=== PATIENT | female | born 1990 | race Caucasian/White ===

== ENCOUNTER 2017-09-30 11:04 | Emergency (ER) | payer MEDICAID ==
[2017-09-30 11:08] VITALS: BP 107/62
[2017-09-30 11:30] LABS: BILIRUBIN,URINE NEGATIVE (NEGATIVE); GLUCOSE, URINE (UA) NEGATIVE (NEGATIVE); KETONES,URINE (UA) 15 mg/dL (NEGATIVE); LEUKOCYTE ESTERASE, URINE MODERATE (NEGATIVE); NITRITE,URINE NEGATIVE (NEGATIVE); OCCULT BLOOD,URINE MODERATE (NEGATIVE); PROTEIN,URINE TRACE mg/dL (NEGATIVE); UROBILINOGEN,URINE 0.2 (NORMAL) E.U./dL (NORMAL)
[2017-09-30 11:32] LABS: CLARITY,URINE CLOUDY (CLEAR); HCG UR QUAL NEGATIVE
[2017-09-30 11:46] LABS: SQUAMOUS EPITHELIAL CELL,UR FEW Squamous (<= Few); WBC CLUMPS,URINE PRESENT
[2017-09-30 11:47] LABS: BACTERIA,URINE Moderate /HPF (None Seen)
--- NOTE | 2017-09-30 13:03 | ED Physician Documentation ---
History of Present Illness - Stated complaint Stated Complaint: FEM - Chief complaint Chief Complaint: Heent - Additonal information Additional information: hx from pt 27 female dysuria no fever chill no NV no flank pain denies preg no vag dc small blood with wiping Review of Systems Constitutional: denies: Fever, Chills GI: denies: Abdominal Pain, Nausea, Vomiting : reports: Dysuria. 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: section - Present Medications Home Medications: Ambulatory Orders Medication Instructions Recorded Confirmed Phenazopyridine [Pyridium] 100 mg PO TID PRN #9 tablet 09/30/17 Sulfamethox/Trimeth 800/160 1 each PO BID #6 tablet 09/30/17 [Bactrim Ds 800/160] - Allergies Allergies/Adverse Reactions: Allergies Allergy/AdvReac Type Severity Reaction Status Date / Time cephalexin monohydrate * Allergy Hives Verified 09/30/17 11:08 [From [employer]] - Social History Does the pt smoke?: Yes Smoking Status: Current every day smoker Does the pt drink ETOH?: Yes Does the pt have substance abuse?: Yes - Immunizations Immunizations are current?: Yes - POLST Patient has POLST: No PD ED PE NORMAL - Vitals Vital signs reviewed: Yes - Cardiac Cardiac: RRR - Respiratory Respiratory: No respiratory distress, Clear bilaterally - Abdomen Abdomen: Soft, Non tender - Back Back: No CVA TTP - Neuro Neuro: Alert and oriented X 3 Results - Vitals Vitals: Vital Signs - 24 hr 09/30/17 11:06 Temperature 36.7 C Heart Rate 79 Respiratory 14 Rate Blood Pressure 107/62 O2 Saturation 100 Oxygen O2 Source Room air - Labs Labs: Laboratory Tests 09/30/17 11:21 Urine Color YELLOW Urine Clarity CLOUDY Urine pH 6.0 Ur Specific [place] 1.025 Urine Protein TRACE Urine Glucose (UA) NEGATIVE Urine Ketones 15 H Urine Occult Blood MODERATE H Urine Nitrite NEGATIVE Urine Bilirubin NEGATIVE Urine Urobilinogen 0.2 (NORMAL) Ur Leukocyte Esterase MODERATE H Urine RBC 6-10 H Urine WBC >25 H Urine WBC Clumps PRESENT Ur Squamous Epith Cells FEW Squamous Urine Bacteria Moderate H Ur Microscopic Review INDICATED Urine Culture Comments INDICATED Urine HCG, Qual NEGATIVE PD MEDICAL DECISION MAKING - ED course ED course: no fever chills, no flank pain, small hematuria without flank pain doubt renal colic will tx as cystitis - Sepsis Event Vital Signs: Vital Signs - 24 hr 09/30/17 11:06 Temperature 36.7 C Heart Rate 79 Respiratory 14 Rate Blood Pressure 107/62 O2 Saturation 100 Oxygen O2 Source Room air Departure - Departure Disposition: Home, Self Care Clinical Impression: UTI (urinary tract infection) Qualifiers: Urinary tract infection type: acute cystitis Hematuria presence: with hematuria Qualified Code(s): N30.01 - Acute cystitis with hematuria Condition: Good Instructions: ED UTI Cystitis Female Follow-Up: Li Murillo ARNP [Primary Care Provider] - (for a repeat urine to confirm the infection and blood have cleared ) Prescriptions: Phenazopyridine [Pyridium] 100 mg PO TID PRN #9 tablet PRN Reason: dysuria Sulfamethox/Trimeth 800/160 [Bactrim Ds 800/160] 1 each PO BID #6 tablet Comments: A urine culture will be run and if your antibiotic needs to be changed, the ER staff will call you. Please follow up with your PMD next week for a repeat urine test to be sure the infection and blood have cleared Return if worse Forms: Activity restrictions
== END 2017-09-30 13:09 | disposition home or self-care (01) ==
LOC: ED 11:04
DX: N30.01 Acute cystitis with hematuria (principal); F17.200 Nicotine dependence, unspecified, uncomplicated
CPT/HCPCS: 81001; 81003; 81025; 87086; 87181; 99283

== ENCOUNTER 2018-05-26 23:54 | Outpatient (CLI) | payer OTHER, MEDICAID | END 2018-05-26 23:55 | disposition EMS.NT | LOC: EMS 23:54 | PROVIDERS: ATTEND Surgery | DX: Z04.1 Encounter for examination and observation following transport accident (principal) ==

== ENCOUNTER 2018-07-19 10:22 | Outpatient (CLI) | payer MEDICAID ==
[2018-07-20 12:57] LABS: HEPATITIS B SURFACE ANTIGEN NON-REACTIVE (NON-REACTIVE)
[2018-07-20 13:07] LABS: HEPATITIS C ANTIBODY NON-REACTIVE (NON-REACTIVE)
[2018-07-20 14:15] LABS: HIV AG/AB 4TH GEN NON-REACTIVE (NON-REACTIVE)
== END 2018-07-19 10:23 | disposition home or self-care (01) ==
LOC: LAB.F 10:22
PROVIDERS: ATTEND Internal Medicine
DX: Z20.2 Contact with and (suspected) exposure to infections with a predominantly sexual mode of transmission (principal)
CPT/HCPCS: 36415; 81599; 86592; 86803; 87340; 87389; 87491; 87591

== ENCOUNTER 2020-01-24 14:26 | Emergency (ER) | payer MEDICAID ==
[2020-01-24 14:58] LABS: BILIRUBIN,URINE NEGATIVE (NEGATIVE); GLUCOSE, URINE (UA) NEGATIVE (NEGATIVE); KETONES,URINE (UA) NEGATIVE (NEGATIVE); LEUKOCYTE ESTERASE, URINE NEGATIVE (NEGATIVE); NITRITE,URINE NEGATIVE (NEGATIVE); OCCULT BLOOD,URINE NEGATIVE (NEGATIVE); PROTEIN,URINE NEGATIVE (NEGATIVE); UROBILINOGEN,URINE 0.2 (NORMAL) E.U./dL (NORMAL)
[2020-01-24 14:59] LABS: CLARITY,URINE CLEAR (CLEAR)
[2020-01-24 15:00] LABS: HCG UR QUAL NEGATIVE
[2020-01-24 15:07] LABS: BASOPHILS % (AUTO) 0.3 %; EOSINOPHILS # (AUTO) 0.1 10^3/uL (0.0-0.7); EOSINOPHILS % (AUTO) 1.7 %; HGB - HEMOGLOBIN 13.3 g/dL (12.0-16.0); LYMPHOCYTES # (AUTO) 1.2 10^3/uL (1.5-3.5); LYMPHOCYTES % (AUTO) 19.2 %; MEAN CORPUSCULAR HEMOGLOBIN 31.3 pg (27.0-31.0); MEAN CORPUSCULAR HGB CONC 33.4 g/dL (32.0-36.0); MEAN CORPUSCULAR VOLUME 93.6 fL (81.0-99.0); MEAN PLATELET VOLUME 9.3 fL (7.9-10.8); MONOCYTES # (AUTO) 0.4 10^3/uL (0.0-1.0); MONOCYTES % (AUTO) 6.6 %; NEUTROPHILS # (AUTO) 4.7 10^3/uL (1.5-6.6); PLT - PLATELET COUNT 226 10^3/uL (130-450); RED BLOOD COUNT 4.25 10^6/uL (4.20-5.40); RED CELL DISTRIBUTION WIDTH 11.9 % (12.0-15.0); WHITE BLOOD COUNT 6.5 x10^3/uL (4.8-10.8)
[2020-01-24] MEDS ORDERED: KETOROLAC 30 MG/ML VIAL IVP STA (15:15)
[2020-01-24] MEDS ORDERED: SODIUM CHLORIDE 0.9% 1,000 ML IV STA ×2 (15:15)
[2020-01-24 15:16] LABS: ALBUMIN 4.5 g/dL (3.2-5.5); ALBUMIN/GLOBULIN RATIO 1.6 (1.0-2.2); BILIRUBIN,TOTAL 0.5 mg/dL (0.2-1.0); CREATININE 0.5 mg/dL (0.4-1.0); TOTAL PROTEIN 7.3 g/dL (6.7-8.2)
--- NOTE | 2020-01-24 15:26 | ED Physician Documentation ---
History of Present Illness - Stated complaint Stated Complaint: CONSTIPATION,CONGESTION,NUMB HANDS - Chief complaint Chief Complaint: General - History obtained from History obtained from: Patient - History of Present Illness Timing: How many days ago (4) Pain level max: 6 Pain level now: 5 - Additonal information Additional information: 30-year-old female presents the emergency department with abdominal pain. This been ongoing for the past several days. She states that she had some relief after a bowel movement. She feels like she is constipated. She also complains of tingling in the bilateral hands, this occurs intermittently. Not currently feeling that. She also complains of a bump near the right third digit, MCP joint. Nothing makes it better or worse as well. Denies any vomiting. No fevers. No diarrhea or constipation. 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 : None HEENT: None Psych: Depression Musculoskeletal: None Derm: None - Past Surgical History Past 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 - Present Medications Home Medications: Ambulatory Orders Medication Instructions Recorded Confirmed Ibuprofen [Motrin] 800 mg PO Q8H PRN #30 tablet 01/24/20 Ondansetron Odt [Zofran] 4 mg TL Q6H PRN #10 tablet 01/24/20 polyethylene glycoL 3350 [Miralax] 17 gm PO DAILY PRN #1 bottle 01/24/20 - Allergies Allergies/Adverse Reactions: Allergies Allergy/AdvReac Type Severity Reaction Status Date / Time cephalexin monohydrate * Allergy Hives Verified 01/24/20 14:43 [From [employer]] - Social History Does the pt smoke?: Yes Smoking Status: Current every day smoker Does the pt drink ETOH?: Yes Does the pt have substance abuse?: Yes - Immunizations Immunizations are current?: Yes - POLST Patient has POLST: No PD ED PE NORMAL - Vitals Vital signs reviewed: Yes - General General: Alert and oriented X 3, No acute distress, Well developed/nourished - HEENT HEENT: Moist mucous membranes - Neck Neck: Supple, no meningeal sign - Cardiac Cardiac: RRR, Strong equal pulses - Respiratory Respiratory: No respiratory distress, Clear bilaterally - Abdomen Abdomen: Soft, Non distended, Other (mild TTP LLQ) - Rectal Rectal: Pt declined - Back Back: No CVA TTP, No spinal TTP - Derm Derm: Warm and dry - Extremities Extremities: No edema - Neuro Neuro: Alert and oriented X 3 - Psych Psych: Normal mood, Normal affect Results - Vitals Vitals: Vital Signs - 24 hr 01/24/20 01/24/20 01/24/20 14:38 16:43 18:00 Temperature 36.7 C Heart Rate 90 72 68 Respiratory 16 18 20 Rate Blood Pressure 112/69 110/69 115/75 O2 Saturation 100 100 100 Oxygen O2 Source Room air - Labs Labs: Laboratory Tests 01/24/20 01/24/20 01/24/20 14:47 14:57 14:57 WBC 6.5 RBC 4.25 Hgb 13.3 Hct 39.8 MCV 93.6 MCH 31.3 H MCHC 33.4 RDW 11.9 L Plt Count 226 MPV 9.3 Neut # (Auto) 4.7 Lymph # (Auto) 1.2 L [place] # (Auto) 0.4 Eos # (Auto) 0.1 Baso # (Auto) 0.0 Absolute Nucleated RBC 0.00 Nucleated RBC % 0.0 Sodium 136 Potassium 3.5 Chloride 102 Carbon Dioxide 24 Anion Gap 10.0 BUN 19 Creatinine 0.5 Estimated GFR (MDRD) 145 Glucose 85 Calcium 9.0 Phosphorus Magnesium Total Bilirubin 0.5 AST 14 ALT 12 Alkaline Phosphatase 51 Total Protein 7.3 Albumin 4.5 Globulin 2.8 Albumin/Globulin Ratio 1.6 Lipase 20 L Urine Color YELLOW Urine Clarity CLEAR Urine pH 6.0 Ur Specific [place] 1.025 Urine Protein NEGATIVE Urine Glucose (UA) NEGATIVE Urine Ketones NEGATIVE Urine Occult Blood NEGATIVE Urine Nitrite NEGATIVE Urine Bilirubin NEGATIVE Urine Urobilinogen 0.2 (NORMAL) Ur Leukocyte Esterase NEGATIVE Ur Microscopic Review NOT INDICATED Urine Culture Comments NOT INDICATED Urine HCG, Qual NEGATIVE 01/24/20 14:57 WBC RBC Hgb Hct MCV MCH MCHC RDW Plt Count MPV Neut # (Auto) Lymph # (Auto) [place] # (Auto) Eos # (Auto) Baso # (Auto) Absolute Nucleated RBC Nucleated RBC % Sodium Potassium Chloride Carbon Dioxide Anion Gap BUN Creatinine Estimated GFR (MDRD) Glucose Calcium Phosphorus 3.1 Magnesium 2.2 Total Bilirubin AST ALT Alkaline Phosphatase Total Protein Albumin Globulin Albumin/Globulin Ratio Lipase Urine Color Urine Clarity Urine pH Ur Specific [place] Urine Protein Urine Glucose (UA) Urine Ketones Urine Occult Blood Urine Nitrite Urine Bilirubin Urine Urobilinogen Ur Leukocyte Esterase Ur Microscopic Review Urine Culture Comments Urine HCG, Qual - Rads (name of study) CT abdomen pelvis Radiology: Prelim report reviewed, EMP read contemporaneously, See rad report pelvic US Radiology: Prelim report reviewed, EMP read contemporaneously, See rad report PD MEDICAL DECISION MAKING - ED course Complexity details: reviewed results, re-evaluated patient, considered differential, d/w patient, d/w family ED course: 30 year old female with L ovary pain. Likely ruptured ovarian cyst on ultrasound/CT. Also appears constipated, given Gastrografin. Will prescribe MiraLAX for home. Dr. Garibay, gynecology consulted and discussed with the patient options for her IUD including removal, the patient will follow-up in clinic for this. Patient is otherwise well-appearing, nontoxic. Afebrile. Patient counseled regarding signs and symptoms for which I believe and urgent re-evaluation would be necessary. Patient with good understanding of and agreement to plan and is comfortable going home at this time This document was made in part using voice recognition software. While efforts are made to proofread this document, sound alike and grammatical errors may occur. CT Scan: Moderate to large volume free pelvic fluid of intermediate density. This may be secondary to a ruptured hemorrhagic cyst, although this is not definitive. Correlation with clinical and any recent procedural history is requested. Pelvic ultrasound could be useful for further evaluation if clinically warranted. Large volume of stool throughout the colon consistent with constipation. Pelvic US: Malpositioned IUD, L ovary not visualized, +FF Departure - Departure Disposition: Home, Self Care Clinical Impression: Constipation Qualifiers: Constipation type: unspecified constipation type Qualified Code(s): K59.00 - Constipation, unspecified Ovarian cyst Qualifiers: Laterality: left Qualified Code(s): N83.202 - Unspecified ovarian cyst, left side Malpositioned IUD Qualifiers: Encounter type: initial encounter Qualified Code(s): T83.32XA - Displacement of intrauterine contraceptive device, initial encounter Condition: Good Instructions: ED Constipation, ED Cyst Ovarian Follow-Up: Dario Ward MD [Primary Care Provider] - Within 1 week Patricia Garibay MD [Provider Admit Priv/Credential] - Within 1 week Prescriptions: polyethylene glycoL 3350 [Miralax] 17 gm PO DAILY PRN #1 bottle PRN Reason: Constipation Ibuprofen [Motrin] 800 mg PO Q8H PRN #30 tablet PRN Reason: PAIN &/OR FEVER Ondansetron Odt [Zofran] 4 mg TL Q6H PRN #10 tablet PRN Reason: Nausea / Vomiting Comments: You appear to have a likely ruptured ovarian cyst today. You were given medication for the constipation. Follow-up with Dr. Garibay as discussed today for your IUD. Return if you worsen.
[2020-01-24] MEDS ORDERED: IOVERSOL 320 100 ML VIAL IVP ONE ×2 (15:27→16:43)
[2020-01-24 15:34] LABS: MAGNESIUM 2.2 mg/dL (1.7-2.8); PHOSPHORUS 3.1 mg/dL (2.5-4.6)
--- NOTE | 2020-01-24 16:10 | CT Report ---
PROCEDURE: Abdomen/Pelvis W INDICATIONS: LLQ abd pain CONTRAST: IV CONTRAST: Optiray 320 ml: 100 PO CONTRAST: *NO PO CONTRAST TECHNIQUE: After the administration of contrast, 5 mm thick sections acquired from the diaphragms to the sym physis. 5 mm thick coronal and sagittal reformats were acquired. For radiation dose reduction, the following was used: automated exposure control, adjustment of mA and/or kV according to patient size . COMPARISON: None. FINDINGS: Image quality: Excellent. ABDOMEN: Lung bases: Lung bases are clear. Heart size is normal. Solid organs: Liver and spleen are normal in size and enhancement. Gallbladder within normal limits . Biliary system is non dilated. Pancreas enhances normally. No adrenal nodules. Kidneys demonstr ate normal size and enhancement, without hydronephrosis. Peritoneum and bowel: Large volume of formed stool throughout the colon suggestive of constipation. N o abnormally dilated loop of bowel. No obvious bowel wall thickening. No pericolonic or mesenteric in flammatory changes. Nodes and vessels: No retroperitoneal or mesenteric adenopathy by size criteria. Aorta and inferior vena cava are normal in size. Miscellaneous: No ventral hernias. PELVIS: Genitourinary: Moderate to large volume free fluid throughout the pelvis of intermediate density. Thi s obscures the ovaries which are consequently not evaluated. IUD in the uterus appears to be in the a ppropriate position. Urinary bladder is decompressed and grossly unremarkable. Miscellaneous: No inguinal hernias or adenopathy. Bones: No suspicious bony lesions. No vertebral body compression fractures. IMPRESSION: Moderate to large volume free pelvic fluid of intermediate density. This may be secondary to a ruptur ed hemorrhagic cyst, although this is not definitive. Correlation with clinical and any recent proced ural history is requested. Pelvic ultrasound could be useful for further evaluation if clinically war ranted. Large volume of stool throughout the colon consistent with constipation. Reviewed by: Henry Pinto MD on 01/24/2020 4:09 PM PDT Approved by: Henry Pinto MD on 01/24/2020 4:09 PM PDT Station ID: [id number]
[2020-01-24] MEDS ORDERED: DIATR MEGLU/DIATRIZOATE SODIUM 120 ML BOTTLE PO ONE (16:11)
[2020-01-24] MEDS ORDERED: DIATRIZOATE MEGLU/DIATRIZO SOD 30 ML BOTTLE PO STA (16:44)
[2020-01-24 18:03] VITALS: BP 115/75
--- NOTE | 2020-01-24 19:01 | Ultrasound Report ---
PROCEDURE: Pelvic w/Transvag+Doppler Comp INDICATIONS: pelvic pain, R and L TECHNIQUE: Real-time scanning was performed of the pelvic organs, with image documentation. Additional endovagi nal scanning was necessary due to incomplete visualization of the adnexal and endometrial structures by transabdominal scanning. COMPARISON: CT abdomen/pelvis 01/24/2020 FINDINGS: Transabdominal scanning: A small amount of free fluid is seen in the pelvis. Endovaginal scanning: Uterus: Uterus is normal in size at 9.1 x 4.3 x 5.5 cm. The endometrium measures approximately 3 mm in thickness, but an intrauterine device is present that mildly compromises evaluation. One of the si de arms of the intrauterine device appears to be extending into the myometrium. Ovaries: The right ovary measures 3.3 x 1.5 x 1.5 cm, with a volume of 4 mL. Arterial and venous kam w seen to the right ovary. The left ovary is not well-visualized due to overlying bowel. IMPRESSION: 1. Intrauterine device appears to be extending beyond the endometrium and may be partially embedded within the myometrial wall. 2. The right ovary appears normal. The left ovary is not visualized due to overlying bowel. 3. Small amount of free fluid in the pelvis. Reviewed by: Richmond Huff MD on 01/24/2020 7:00 PM PDT Approved by: Richmond Huff MD on 01/24/2020 7:00 PM PDT Station ID: [id number]
== END 2020-01-24 19:18 | disposition home or self-care (01) ==
LOC: ED 14:26
DX: N83.202 Unspecified ovarian cyst, left side (principal); K59.00 Constipation, unspecified; T83.32XA Displacement of intrauterine contraceptive device, initial encounter; Y84.8 Other medical procedures as the cause of abnormal reaction of the patient, or of later complication, without mention of misadventure at the time of the procedure; F17.200 Nicotine dependence, unspecified, uncomplicated
CPT/HCPCS: 36415; 74177; 76830; 76856; 80053; 81003; 81025; 83690; 83735; 84100; 85025; 93975; 96361; 96374; 99284; Q9963; Q9967; 81001; 87086

== ENCOUNTER 2020-03-08 08:00 | Outpatient (CLI) | payer MEDICAID | END 2020-03-08 23:59 | disposition home or self-care (01) | LOC: LAB.S 08:00 | PROVIDERS: ATTEND Emergency Medicine | DX: R30.0 Dysuria (principal) | CPT/HCPCS: 87086 ==

== ENCOUNTER 2022-02-17 07:33 | Outpatient (CLI) | payer MEDICAID | END 2022-02-17 23:59 | disposition EMS.NT | LOC: EMS 07:33 | DX: T23.162A Burn of first degree of back of left hand, initial encounter (principal); X15.0XXA Contact with hot stove (kitchen), initial encounter; Y92.009 Unspecified place in unspecified non-institutional (private) residence as the place of occurrence of the external cause ==